=== PATIENT | female | born 1990 | race Caucasian/White ===

== ENCOUNTER 2017-08-06 17:21 | Emergency (ER) | payer MEDICAID ==
[~2017-08-06] VITALS: Ht 175.3 cm; Wt 48.5 kg
--- NOTE | 2017-08-06 19:20 | NUR ---
SOCCER COACH AT BEDSIDE
[2017-08-06] MEDS ORDERED: KETOROLAC TROMETHAMINE INJ 60 MG/2 ML VIAL IM ONE (20:00)
[2017-08-06] MEDS ORDERED: KETOROLAC TROMETHAMINE INJ 30 MG/ML VIAL ONE (20:02)
[2017-08-06 20:10] VITALS: BP 117/75
== END 2017-08-06 20:10 | disposition home or self-care (01) ==
LOC: ER 17:28
DX: M94.0 Chondrocostal junction syndrome [Tietze] (principal); Z98.890 Other specified postprocedural states
CPT/HCPCS: 71046; A4606; J1885; Z7610